=== PATIENT | female | born 1970 | race Caucasian/White ===

== ENCOUNTER 2016-05-29 18:32 | Emergency (ER) ==
[2016-05-29 18:41] VITALS: BP 153/90; TEMP 99; BMI 28.3
[2016-05-29] MEDS ORDERED: DECADRON 4 MG/ML SDV IM STA (19:13)
--- NOTE | 2016-05-29 19:20 | ED.PDOC ---
General ED Provider: Dr. DWAIN HARP Chief Complaint: Chest Pain Stated Complaint: hurting in the right side of the chest since 3 days, was working out on saturday, which started the pain, pain is gradually getting worse, hurt to breath out, Time Seen by Physician: 19:17 Mode of Arrival: Walk-In Information Source: Patient Primary Care Provider: MARY LOU VELARDE Nursing and Triage Documentation Reviewed and Agree: Yes Cardiovascular Complaint Exam - Chest Pain Complaint/Exam Onset: Gradual Symptoms Are: Still present Timing: Constant Initial Severity: Moderate Current Severity: Moderate Location: Reports: Right lateral Character: Reports: Aching Aggravating: Reports: Deep breaths Alleviating: Reports: None Associated Signs and Symptoms: Denies: Diaphoresis, Nausea, Vomiting, Fever, Palpitations, Cough, Hemoptysis, Back pain, Abdominal pain, Dizziness, Short of air, Calf pain, Calf swelling Related Surgical History: Reports: None History of Healthcare-Acquired Pneumonia: Reports: No AMI/ACS Risk Factors: Reports: None TAD Risk Factors: Reports: None Pulmonary Embolism Risk Factors: Reports: None Prior Care for this Complaint: No Recent Stress Test: No Recent Echo/LV Function: No JVD Present: No Subcutaneous Emphysema Present: No Diminshed Breath Sounds: No Reproducible Chest Wall Pain: Yes Bilateral Pulses Present: Yes Unequal Pulses Noted: No Differential Diagnoses: Chest Wall Pain Review of Systems - Review Of Systems Constitutional: Reports: No symptoms Eyes: Reports: No symptoms Ears, Nose, Mouth, Throat: Reports: No symptoms Respiratory: Reports: No symptoms Cardiac: Reports: No symptoms GI: Reports: No symptoms : Reports: No symptoms Musculoskeletal: Reports: No symptoms Skin: Reports: No symptoms Neurological: Reports: No symptoms Endocrine: Reports: No symptoms Hematologic/Lymphatic: Reports: No symptoms All Other Systems: Reviewed and Negative Past Medical History - Past Medical History Previously Healthy: Yes Endocrine: Reports: None Cardiovascular: Reports: None Respiratory: Reports: None Hematological: Reports: None Gastrointestinal: Reports: None Genitourinary: Reports: None Neuro/Psych: Reports: None Musculoskeletal: Reports: None Cancer: Reports: None Last Menstrual Period: may 17 - Surgical History General Surgical History: Reports: None - Family History Family History: Reports: None - Social History Smoking Status: Former smoker Hx Substance Use: No Alcohol Screening: Occasionally Physical Exam - Physical Exam Appearance: Well-appearing, No pain distress, Well-nourished Eyes: MAEGAN, EOMI, Conjunctiva clear ENT: Ears normal, Nose normal, Oropharynx normal Respiratory: Airway patent, Breath sounds clear, Breath sounds equal, Respirations nonlabored Cardiovascular: RRR, Pulses normal, No rub, No murmur GI/: Soft, Nontender, No masses, Bowel sounds normal, No Organomegaly Musculoskeletal: Normal strength, ROM intact, No edema, No calf tenderness Skin: Warm, Dry, Normal color Neurological: Sensation intact, Motor intact, Reflexes intact, Cranial nerves intact, Alert, Oriented Psychiatric: Affect appropriate, Mood appropriate Interpretation - Radiology Interpretation Radiology Interpretation By: ED Physician Radiology Results: Negative Critical Care Note - Critical Care Note Total Time (mins): 0 Course - Course Orders, Labs, Meds: Lab Review 05/29/16 19:40 Urine Test Negative Orders Category Date Time Status URINE Stat LAB 05/29/16 19:40 Completed Dexamethasone 4 mg/ml Inj [Decadron 4 mg/ml Sdv] MEDS 05/29/16 19:13 Discontinued 4 mg IM ONCE STA CHEST, 2 VIEWS PA & LAT Stat RADS 05/29/16 19:13 Taken Medications Discontinued Medications Generic Name Dose Route Start Last Admin Trade Name Freq PRN Reason Stop Dose Admin Dexamethasone Sodium Phosphate 4 mg 05/29/16 19:13 05/29/16 19:21 Decadron 4 Mg/Ml Sdv IM 05/29/16 19:14 4 mg ONCE STA Administration Vital Signs: Temp Pulse Resp BP Pulse Ox 05/29/16 18:32 99 F 68 20 153/90 H 95 PAULETTE Risk Score PAULETTE Risk Score: Risk Score Odds of by 30D 0 0.1 (0.1-0.2) 1 0.3 (0.2-0.3) 2 0.4 (0.3-0.5) 3 0.7 (0.6-0.9) 4 1.2 (1.0-1.5) 5 2.2 (1.9-2.6) 6 3.0 (2.5-3.6) 7 4.8 (3.8-6.1) Departure - Departure Time of Disposition: 20:17 Disposition: HOME SELF-CARE Discharge Problem: Chest wall pain Instructions: Chest Wall Pain (ED) Condition: Stable Pt referred to PMD for follow-up: No Additional Instructions: Hot or cold pack rest for couple days no gym. Prescriptions: Hydrocodone/Acetaminophen [Cataumet 5-325 Tablet] 1 tab PO TID PRN #12 tablet PRN Reason: PAIN Prednisone 10 mg PO BIDWM #14 tablet Allergies/Adverse Reactions: Allergies No Known Allergies Allergy (Unverified 05/29/16 18:39) Home Medications: Ambulatory Orders Escitalopram Oxalate [Lexapro] 10 mg PO DAILY 05/29/16 Hydrocodone/Acetaminophen [Cataumet 5-325 Tablet] 1 tab PO TID PRN #12 tablet 05/29 Levothyroxine Sodium [Synthroid] 75 mcg PO QDAC 05/29/16 Prednisone 10 mg PO BIDWM #14 tablet 05/29/16 Disposition Discussed With: Patient, Family
[2016-05-29 19:46] LABS: URINE PREGNANCY INTERNAL QC INTERNAL QC VALID
--- NOTE | 2016-05-29 23:54 | DI ---
EXAM: Chest, two views, 05/01/2016 HISTORY: Chest pain COMPARISON: None. FINDINGS / IMPRESSION: Cardiomediastinal contours appear within normal limits. No pulmonary consol idation, effusion or pneumothorax. No acute cardiopulmonary process.
== END 2016-05-29 20:28 | disposition home or self-care (01) ==
LOC: ED 18:32
DX: R07.89 Other chest pain (principal)
CPT/HCPCS: 81025; 96372; 99282

== ENCOUNTER 2016-09-13 20:01 | Emergency (ER) ==
[2016-09-13 20:16] VITALS: BP 124/83; TEMP 99.9; BMI 27.1
[2016-09-13] MEDS ORDERED: DECADRON 4 MG/ML SDV IM STA (20:35)
[2016-09-13] MEDS ORDERED: BENADRYL IM STA (20:35)
--- NOTE | 2016-09-13 21:00 | ED.PDOC ---
General ED Provider: Dr. DWAIN HARP Chief Complaint: Bite Stated Complaint: wasp bite on the rt hand, forearm, it is swollen Time Seen by Physician: 20:58 Mode of Arrival: Walk-In Information Source: Patient Primary Care Provider: MARY LOU VELARDE Nursing and Triage Documentation Reviewed and Agree: Yes Skin Complaint Exam - Skin/Soft Tissue Complaint/Exam Symptoms Are: Still present Timing: Constant Initial Severity: Mild Current Severity: Mild Character: Reports: Swelling, Raised Aggravating: Reports: None Alleviating: Reports: None Related Surgical History: Reports: None Recent Exposure to Others w/Similar Symptoms: No Skin Findings: Present: Other (swollen area on rt wrist.) Differential Diagnoses: Other (wasp bite) Review of Systems - Review Of Systems Constitutional: Reports: No symptoms Eyes: Reports: No symptoms Ears, Nose, Mouth, Throat: Reports: No symptoms Respiratory: Reports: No symptoms Cardiac: Reports: No symptoms GI: Reports: No symptoms : Reports: No symptoms Musculoskeletal: Reports: No symptoms Skin: Reports: No symptoms Neurological: Reports: No symptoms Endocrine: Reports: No symptoms Hematologic/Lymphatic: Reports: No symptoms All Other Systems: Reviewed and Negative Past Medical History - Past Medical History Previously Healthy: Yes Endocrine: Reports: None Cardiovascular: Reports: None Respiratory: Reports: None Hematological: Reports: None Gastrointestinal: Reports: None Genitourinary: Reports: None Neuro/Psych: Reports: None Musculoskeletal: Reports: None Cancer: Reports: None Last Menstrual Period: 09/05/16 - Surgical History General Surgical History: Reports: None - Family History Family History: Reports: None - Social History Smoking Status: Former smoker Hx Substance Use: No Alcohol Screening: Occasionally Physical Exam - Physical Exam Appearance: Well-appearing, No pain distress, Well-nourished Eyes: MAEGAN, EOMI, Conjunctiva clear ENT: Ears normal, Nose normal, Oropharynx normal Respiratory: Airway patent, Breath sounds clear, Breath sounds equal, Respirations nonlabored Cardiovascular: RRR, Pulses normal, No rub, No murmur GI/: Soft, Nontender, No masses, Bowel sounds normal, No Organomegaly Musculoskeletal: Normal strength, ROM intact, No edema, No calf tenderness Skin: Warm (swollen rt wrist, ), Dry, Normal color Neurological: Sensation intact, Motor intact, Reflexes intact, Cranial nerves intact, Alert, Oriented Psychiatric: Affect appropriate, Mood appropriate Critical Care Note - Critical Care Note Total Time (mins): 0 Course - Course Orders, Labs, Meds: Orders Category Date Time Status Dexamethasone 4 mg/ml Inj [Decadron 4 mg/ml Sdv] MEDS 09/13/16 20:35 Discontinued 4 mg IM ONCE STA Diphenhydramine Inj [Benadryl] MEDS 09/13/16 20:35 Discontinued 25 mg IM ONCE STA Medications Discontinued Medications Generic Name Dose Route Start Last Admin Trade Name Freq PRN Reason Stop Dose Admin Dexamethasone Sodium Phosphate 4 mg 09/13/16 20:35 Decadron 4 Mg/Ml Sdv IM 09/13/16 20:36 ONCE STA Diphenhydramine HCl 25 mg 09/13/16 20:35 Benadryl IM 09/13/16 20:36 ONCE STA Vital Signs: Temp Pulse Resp BP Pulse Ox 09/13/16 20:08 99.9 F H 77 16 124/83 97 Departure - Departure Time of Disposition: 21:01 Disposition: HOME SELF-CARE Discharge Problem: Wasp sting Qualifiers: Encounter type: initial encounter Injury intent: accidental or unintentional Qualifier Code: (T63.461A) Toxic effect of venom of wasps, accidental ( unintentional), initial encounter Instructions: Insect Bite or Sting (ED) Condition: Stable Pt referred to PMD for follow-up: Yes Additional Instructions: keep hand elevated Tylenol prn if not better come back Prescriptions: Diphenhydramine HCl [Benadryl] 25 mg PO Q6H #14 capsule Methylprednisolone [Medrol Dosepak] 4 mg PO DIRECTED #1 pkg Allergies/Adverse Reactions: Allergies No Known Allergies Allergy (Unverified 09/13/16 20:16) Home Medications: Ambulatory Orders Escitalopram Oxalate [Lexapro] 10 mg PO DAILY 05/29/16 Levothyroxine Sodium [Synthroid] 75 mcg PO QDAC 05/29/16 Diphenhydramine HCl [Benadryl] 25 mg PO Q6H #14 capsule 09/13/16 Methylprednisolone [Medrol Dosepak] 4 mg PO DIRECTED #1 pkg 09/13/16 Disposition Discussed With: Patient, Family
== END 2016-09-13 21:05 | disposition home or self-care (01) ==
LOC: ED 20:01
DX: T63.461A Toxic effect of venom of wasps, accidental (unintentional), initial encounter (principal); M79.89 Other specified soft tissue disorders
CPT/HCPCS: 96372; 99282

== ENCOUNTER 2017-09-16 22:14 | Emergency (ER) ==
[2017-09-16 22:20] VITALS: BP 147/87; TEMP 99.4; BMI 28.9
[2017-09-16] MEDS ORDERED: ZOFRAN 4 MG/2 ML IM STA (22:32)
[2017-09-16] MEDS ORDERED: MORPHINE 2 MG/ML SYRINGE IM STA (22:32)
--- NOTE | 2017-09-16 22:43 | ED.PDOC ---
General ED Provider: Dr. DWAIN HARP Chief Complaint: Abdominal Pain Stated Complaint: Came for ther lower abdominal pain, vomiting, had lots of dry heaving. no fever or chills Time Seen by Physician: 23:45 Mode of Arrival: Walk-In Information Source: Patient Exam Limitations: Other Primary Care Provider: MARY LOU VELARDE Nursing and Triage Documentation Reviewed and Agree: Yes Does patient meet sepsis criteria?: No If yes, has appropriate treatment been initiated?: No System Inflammatory Response Syndrome: Not Applicable Sepsis Protocol: For patient's 13 years and over: Temp is 96.8 and below OR 101 and greater Pulse >90 BPM Resp >20/minute Acutely Altered Mental Status Are patient's symptoms suggestive of a new infection, such as: -Pneumonia -Skin, Soft Tissue -Endocarditis -UTI -Bone, Joint Infection -Implantable Device -Acute Abdominal Infection -Wound Infection -Meningitis -Blood Stream Catheter Infection -Unknown GI Complaint Exam - Abdominal Pain Complaint/Exam Onset: Sudden Symptoms Are: Still present Timing: Constant Initial Severity: Moderate Current Severity: Severe Location of Pain: Suprapubic Character: Reports: Dull, Aching Aggravating: Reports: None Alleviating: Reports: None Associated Signs and Symptoms: Reports: Nausea, Vomiting. Denies: Diaphoresis, Fever, Cough, Chest pain, Dizziness, Back pain, Constipation, Blood in stool, Dysuria, Urinary frequency, Decreased urine output, Decreased appetite, Vaginal bleeding, Vaginal discharge, Diarrhea, Sore throat, Decreased activity AAA Risk Factors: Reports: None Cardiac Risk Factors: Reports: None Ectopic Risk Factors: Reports: None Ovarian Torsion Risk Factors: Reports: None Surgical Obstruction Risk Factors: Reports: None Related Surgical History: Reports: None Abdominal Findings: Absent: Pulsatile mass, Abdominal distention, Unequal femoral pulses Differential Diagnoses: Diverticulitis, Gastroenteritis, Renal Colic Review of Systems - Review Of Systems Constitutional: Reports: No symptoms Eyes: Reports: No symptoms Ears, Nose, Mouth, Throat: Reports: No symptoms Respiratory: Reports: No symptoms Cardiac: Reports: No symptoms GI: Reports: Abdominal pain, Nausea, Vomiting : Reports: No symptoms Musculoskeletal: Reports: No symptoms Skin: Reports: No symptoms Neurological: Reports: No symptoms Endocrine: Reports: No symptoms Hematologic/Lymphatic: Reports: No symptoms All Other Systems: Reviewed and Negative Past Medical History - Past Medical History Previously Healthy: Yes Endocrine: Reports: Hypothyroid Cardiovascular: Reports: None Respiratory: Reports: None Hematological: Reports: None Gastrointestinal: Reports: None Genitourinary: Reports: None Neuro/Psych: Reports: None Musculoskeletal: Reports: None Cancer: Reports: None Last Menstrual Period: 2 weeks ago - Surgical History General Surgical History: Reports: - Family History Family History: Reports: None - Social History Smoking Status: Former smoker Hx Substance Use: No Alcohol Screening: Occasionally - Immunizations Tetanus Shot up to Date: No (unsure) Physical Exam - Physical Exam Appearance: Ill-appearing, Thin Ill-appearing: Mild Pain Distress: Moderate Eyes: MAEGAN, EOMI, Conjunctiva clear ENT: Ears normal, Nose normal, Oropharynx normal Respiratory: Airway patent, Breath sounds clear, Breath sounds equal, Respirations nonlabored Cardiovascular: RRR, Pulses normal, No rub, No murmur GI/: Soft, No masses, Tender, Bowel sounds hypoactive Musculoskeletal: Normal strength, ROM intact, No edema, No calf tenderness Skin: Warm, Dry, Normal color Neurological: Sensation intact, Motor intact, Reflexes intact, Cranial nerves intact, Alert, Oriented Psychiatric: Affect appropriate, Mood appropriate Interpretation - Radiology Interpretation Radiology Interpretation By: Radiologist Radiology Results: Positive Exam Interpreted: CT Scan Physician Notification - Case Discussed Time of Notification: 01:17 (Dr Bernal.) Critical Care Note - Critical Care Note Total Time (mins): 30 Course - Course Hematology/Chemistry: 09/16/17 22:38 09/16/17 22:38 Orders, Labs, Meds: Lab Review 09/16/17 09/16/17 09/16/17 22:38 22:38 22:50 WBC 14.03 H RBC 3.90 L Hgb 11.9 L Hct 34.8 L MCV 89.2 MCH 30.5 MCHC 34.2 RDW Coeff of Desiree 12.7 Plt Count 224 Immature Gran % (Auto) 0.4 Neut % (Auto) 67.4 Lymph % (Auto) 24.7 [place] % (Auto) 6.1 Eos % (Auto) 1.1 Baso % (Auto) 0.3 Immature Gran # (Auto) 0.1 Neut # (Auto) 9.5 H Lymph # (Auto) 3.5 H [place] # (Auto) 0.9 Eos # (Auto) 0.2 Baso # (Auto) 0.0 Sodium 137 Potassium 3.3 L Chloride 106 Carbon Dioxide 20 L Anion Gap 14.3 BUN 14 Creatinine 0.78 Estimated GFR (MDRD) 80.00 BUN/Creatinine Ratio 17.94 Glucose 87 Calcium 9.1 Total Bilirubin 0.4 AST 21 ALT 27 Alkaline Phosphatase 44 Total Protein 7.2 Albumin 3.7 Globulin 3.5 Albumin/Globulin Ratio 1.06 Amylase 101 Lipase 33 Urine Color Yellow Urine Clarity Clear Urine pH 7.5 Ur Specific [place] 1.020 Urine Protein 1+ Urine Glucose (UA) Negative Urine Ketones Trace Urine Blood Trace-intact Urine Nitrite Negative Urine Bilirubin Negative Urine Urobilinogen 0.2 Ur Leukocyte Esterase Negative Urine Microscopic RBC 0-2 Urine Microscopic WBC 0-2 Ur Squamous Epith Cells 0-2 Urine Bacteria 1+ Urine Mucus Trace Urine Test 09/16/17 22:50 WBC RBC Hgb Hct MCV MCH MCHC RDW Coeff of Desiree Plt Count Immature Gran % (Auto) Neut % (Auto) Lymph % (Auto) [place] % (Auto) Eos % (Auto) Baso % (Auto) Immature Gran # (Auto) Neut # (Auto) Lymph # (Auto) [place] # (Auto) Eos # (Auto) Baso # (Auto) Sodium Potassium Chloride Carbon Dioxide Anion Gap BUN Creatinine Estimated GFR (MDRD) BUN/Creatinine Ratio Glucose Calcium Total Bilirubin AST ALT Alkaline Phosphatase Total Protein Albumin Globulin Albumin/Globulin Ratio Amylase Lipase Urine Color Urine Clarity Urine pH Ur Specific [place] Urine Protein Urine Glucose (UA) Urine Ketones Urine Blood Urine Nitrite Urine Bilirubin Urine Urobilinogen Ur Leukocyte Esterase Urine Microscopic RBC Urine Microscopic WBC Ur Squamous Epith Cells Urine Bacteria Urine Mucus Urine Test Negative Orders Category Date Time Status ED IV/MEDIPORT/POWERPORT .ONCE EMERGENCY 09/17/17 00:03 Active AMYLASE Stat LAB 09/16/17 22:38 Completed CBC W/ AUTO DIFF Stat LAB 09/16/17 22:38 Completed COMPREHENSIVE METABOLIC PANEL Stat LAB 09/16/17 22:38 Completed LIPASE Stat LAB 09/16/17 22:38 Completed URINALYSIS C & S IF INDICATED Stat LAB 09/16/17 22:50 Completed URINE CULTURE Stat LAB 09/16/17 22:50 Received URINE Stat LAB 09/16/17 22:50 Completed 0.9 % Sodium Chloride [Saline Flush] MEDS 09/17/17 00:03 Ordered 1 syr IVF PRN PRN Hydromorphone HCl [Dilaudid] MEDS 09/16/17 23:17 Discontinued 1 mg IM ONCE STA Morphine Sulfate [Morphine 2 mg/ml Syringe] MEDS 09/16/17 22:32 Discontinued 2 mg IM ONCE STA Ondansetron HCl/Pf [Zofran 4 mg/2 ml] MEDS 09/16/17 22:32 Discontinued 4 mg IM ONCE STA Piperacillin Sodium/Tazobactam [Zosyn 3.375 gm] 3.375 MEDS 09/17/17 00:03 Discontinued gm 0.9 % Sodium Chloride [Sodium Chloride] [address] ABDOMEN/PELVIS WO CONTRAST Stat RADS 09/16/17 22:32 Completed Medications Generic Name Dose Route Start Last Admin Trade Name Freq PRN Reason Stop Dose Admin Sodium Chloride 1 syr 09/17/17 00:03 Saline Flush IVF PRN PRN To flush IV Discontinued Medications Generic Name Dose Route Start Last Admin Trade Name Freq PRN Reason Stop Dose Admin Hydromorphone HCl 1 mg 09/16/17 23:17 09/16/17 23:24 Dilaudid IM 09/16/17 23:18 1 mg ONCE STA Administration Piperacillin Sod/Tazobactam 50 mls @ 50 mls/hr 09/17/17 00:03 09/17/17 00:20 Sod 3.375 gm/ Sodium Chloride IV 09/17/17 01:02 50 mls/hr ONCE STA Administration Morphine Sulfate 2 mg 09/16/17 22:32 09/16/17 22:40 Morphine 2 Mg/Ml Syringe IM 09/16/17 22:33 2 mg ONCE STA Administration Ondansetron HCl 4 mg 09/16/17 22:32 09/16/17 22:41 Zofran 4 Mg/2 Ml IM 09/16/17 22:33 4 mg ONCE STA Administration Vital Signs: Temp Pulse Resp BP Pulse Ox 09/16/17 22:15 99.4 F 64 20 147/87 H 97 Departure - Departure Time of Disposition: 23:48 Disposition: HOME SELF-CARE Discharge Problem: Appendicitis Qualifiers: Appendicitis type: acute appendicitis Acute appendicitis type: other Qualified Code(s): K35.89 - Other acute appendicitis Discharge Problem: (Ruled Out): Gastroenteritis Instructions: Gastroenteritis (ED), Laparoscopic Appendectomy (DC) Condition: Stable Pt referred to PMD for follow-up: Yes IPMP verified?: No Additional Instructions: soft diet Increase Hydration f/u with PMD Allergies/Adverse Reactions: Allergies No Known Allergies Allergy (Verified 09/16/17 22:20) Home Medications: Ambulatory Orders Escitalopram Oxalate [Lexapro] 10 mg PO DAILY 05/29/16 Levothyroxine Sodium [Synthroid] 75 mcg PO QDAC 05/29/16 Diphenhydramine HCl [Benadryl] 25 mg PO Q6H #14 capsule 09/13/16 Disposition Discussed With: Patient
[2017-09-16] MEDS ORDERED: DILAUDID 0.5 MG/0.5 ML SYRINGE IM STA (23:17)
--- NOTE | 2017-09-17 00:01 | CT ---
Exam: CT of the abdomen and pelvis without contrast History: Abdominal pain Technique: [address] of the abdomen and pelvis without intravascular contrast FINDINGS: The lung bases are clear. No significant liver abnormality. The adrenals, pancreas and spl een are unremarkable. The stomach and hiatus are unremarkable.The gallbladder appears normal. Kidneys and proximal collecting system are unremarkable. The appendix measures 8 mm diameter with periappend iceal inflammation. No free intraperitoneal gas. Normal caliber bowel loops. Vascular structures a ppear normal by noncontrast CT. Pelvic genitourinary structures appear normal. There are a few diverticula of the sigmoid colon. Pel jimenez bowel loops unremarkable otherwise. No inflammatory change in the pelvic fat. No acute abnormalit y of the abdominal or pelvic skeleton. Impression: 1. Critical result: Acute appendicitis. No evidence of rupture. Discussed with ordering physician at 2356 hours Central time.
[2017-09-17] MEDS ORDERED: ZOSYN 3.375 GM 3.375 GM in SODIUM CHLORIDE 50 ML IV STA (00:03)
== END 2017-09-17 01:40 | disposition home or self-care (01) ==
LOC: ED 22:14
DX: K35.89 Other acute appendicitis (principal)
CPT/HCPCS: 36415; 80053; 81001; 81025; 82150; 83690; 85025; 87086; 96365; 96372; 99285